=== PATIENT | male | born 1970 | race Caucasian/White ===

== ENCOUNTER 2023-11-12 16:00 | Outpatient (CLI) | payer BC | END 2023-11-12 16:01 | disposition home or self-care (01) | LOC: SLEEPLAB 16:00 | PROVIDERS: ATTEND Internal Medicine | DX: G47.33 Obstructive sleep apnea (adult) (pediatric) (principal); R09.89 Other specified symptoms and signs involving the circulatory and respiratory systems; R06.83 Snoring | CPT/HCPCS: 95800 ==